=== PATIENT | female | born 1965 | race Caucasian/White ===

== ENCOUNTER 2019-09-04 08:50 | Day surgery (SDC) | payer OTHER ==
[2019-09-02 15:07] VITALS: BMI 25.7
[~2019-09-04 08:50] MED LIST: LACTATED RINGERS SOLUTION 1,000 ML IV SCH; ONDANSETRON 4 MG/2 ML VIAL IVPUSH PRN; oxyCODONE HCL 5 MG TABLET PO PRN
--- NOTE | 2019-09-04 09:12 | HP ---
Satellite [facility] - Chief Complaint Chief Complaint: right shoulder pain - Past Medical History Allergies/Adverse Reactions: Allergies Allergy/AdvReac Type Severity Reaction Status Date / Time kiwi Allergy Severe THROAT Verified 09/02/19 15:08 - Current Medications Current Medications: Home Medications Medication Instructions Recorded Acetaminophen [Tylenol] 325 mg PO PRN 09/02/19 Cranberry 400 mg PO DAILY 09/02/19 Hydrocodone/Acetaminophen 1 each PO Q6H #20 tablet MDD 4 09/04/19 [Hydrocodone-Acetamin 5-325 mg] Satellite Physical Exam - Physical Examination General Appearance: Well Nourished, Well Developed, Alert & Oriented x3 ENT: Clear Lung: Normal air movement Extremities: Other (right shoulder- + ttp, decr rom, + neer, + botello, nvi) Neurological: Intact, Alert, Oriented Satellite Impression/Plan - Impression/Plan Impression: right shoulder impingement Operative Procedure: right shoulder arthroscopy with SAD Date to be Performed: 09/04/19
[2019-09-04] MEDS ORDERED: ROPIVACAINE HCL 0.5% 30ML VIAL ONE (10:09)
[2019-09-04] MEDS ORDERED: MIDAZOLAM HCL 2 MG/2 ML SINGLE DOSE VIAL ONE ×2 (10:10)
[2019-09-04] MEDS ORDERED: fentaNYL CITRATE 250 MCG/5 ML VIAL ONE (10:58)
[2019-09-04] MEDS ORDERED: LIDOCAINE HCL/PF 2% SDV 5ML VIAL ONE (10:58)
[2019-09-04] MEDS ORDERED: PROPOFOL 20 ML ONE ×2 (10:59)
[2019-09-04] MEDS ORDERED: ceFAZolin SODIUM 1 GM VIAL IVPB ONE (11:22)
[2019-09-04] MEDS ORDERED: ceFAZolin SODIUM 1 GM VIAL ONE (11:22)
[2019-09-04] MEDS ORDERED: DEXAMETHASONE SOD PHOSPHATE 4 MG/1 ML VIAL ONE (11:34)
--- NOTE | 2019-09-04 11:41 | OP ---
Operative Note - Note: Operative Date: 09/04/19 ([facility]) Pre-Operative Diagnosis: right shoulder impingement Operation: right shoulder arthroscopy with SAD Post-Operative Diagnosis: Same as Pre-op Surgeon: Joey Montejo Box Closing Machine Operator: Ronald Fletcher Anesthesiologist/KNIFE GRINDER: Deepika Cartagena Anesthesia: General, Local Specimens Removed: shavings Estimated Blood Loss (mls): 5
[2019-09-04] MEDS ORDERED: GLYCOPYRROLATE 0.2 MG/1 ML VIAL ONE ×2 (11:56→12:04)
[2019-09-04] MEDS ORDERED: NEOSTIGMINE METHYLSULFATE 0.5 MG/ML - 10 ML MDV ONE (11:56)
[2019-09-04] MEDS ORDERED: ACETAMINOPHEN INJECTION 100 ML IVPB ONE (12:50)
--- NOTE | 2019-09-04 13:12 | OP ---
DATE OF OPERATION: 09/04/2019 PREOPERATIVE DIAGNOSIS: Right shoulder impingement syndrome. POSTOPERATIVE DIAGNOSIS: Right shoulder impingement syndrome. PROCEDURE: Right shoulder arthroscopy and subacromial decompression. SURGEON: Oscar Ag MD HEALTH SERVICES MANAGER: MARILYNN Easton ANESTHESIA: Deepika Cartagena MD, right interscalene block with LMA anesthesia. DRAINS: None. COMPLICATIONS: None. SPECIMEN: Arthroscopic shavings. BLOOD LOSS: 75 ML. BLOOD GIVEN: None. FLUID REPLACEMENT: 1000 mL Plasma-Lyte. INDICATIONS: This patient is a 54-year-old female with a preoperative diagnosis of right shoulder pain and recurrent subacromial impingement syndrome. After failing all nonoperative treatment options, she has elected to go forward with surgery. The patient understands the potential risks, complications, alternatives and benefits to surgery versus nonsurgical treatment. DESCRIPTION OF PROCEDURE: The patient was brought to the operating room. Peripheral IV placed. IV sedation given. Right interscalene block was performed. LMA anesthesia was induced. She was given 2 g of IV Ancef, and she was placed into the beach chair position with ample padding throughout. The right upper extremity was prepped and draped in a usual sterile fashion. The bony landmarks were marked out with a marking pen. A posterior portal was established, and a diagnostic glenohumeral arthroscopy was performed. The joint looked good. All the structures looked good. There was no arthritis of the glenoid or the humerus. The biceps tendon looked good. The biceps anchor and the labrum looked good. There was no undersurface rotator cuff tear. There was no synovitis. The area was copiously irrigated and washed out. All instrumentation and excess saline were removed. Next, our attention was turned to the subacromial space. A lateral portal was established under direct visualization with a spinal needle. A No. 15 scalpel blade and a green cannula were introduced into the subacromial space. Patient was noted to have a lot of inflammatory bursitis. It was removed with the ArthroCare wand after the soft tissue bursectomy and extensive soft tissue debridement. A moderate sized subacromial spur was identified. This was photographed and taken down with a 5.5-mm oval bur, finetuned in reverse and then with a straight shaver. The AC joint looked good. The distal clavicle looked good. The top surface of the rotator cuff looked good. The arm was put through a full range of motion. There was no rotator cuff tear, and there was no point of compression or impingement. The shaver was re-introduced. All excess saline and bony debris was removed. Excess saline was removed. The arthroscopy portal was closed with 3-0 nylon sutures. The area was then washed and dried. Covered with Aquacel dressing. Patient was placed into a sling. Total operative time was about 40 minutes. There were no complications during the case. The patient tolerated the procedure quite well and was brought to the ambulatory recovery room in stable condition. OSCAR AG M.D. [id number]
[2019-09-04] MEDS ORDERED: ACETAMINOPHEN 1000 MG/100 ML VIAL (NON FORMULARY) IVPB ONE (13:30)
[2019-09-04 13:42] VITALS: TEMP 98.3
[2019-09-04] MEDS ORDERED: ONDANSETRON 4 MG/2 ML VIAL IVPUSH ONE (14:50)
[2019-09-04] MEDS ORDERED: ONDANSETRON 4 MG/2 ML VIAL ONE (14:51)
[2019-09-04 15:07] VITALS: BP 102/59; PULSE 69
--- NOTE | 2019-09-09 17:02 | PATH ---
Surgical Pathology Report Patient Name: BRIAN MONTANO [facility]. Rec. #: [id number] /Age/Gender: 1965 (Age: 54) / F Account: [id number] Location: [facility] Taken: 09/04/2019 Received: 09/06/2019 Reported: 09/09/2019 Physicians: oJey Montejo M.D. Specimen(s) Received SHOULDER SHAVINGS, RIGHT Clinical History Impingement syndrome right shoulder Final Diagnosis SHOULDER SHAVINGS, RIGHT, ARTHROSCOPY WITH DECOMPRESSION: FRAGMENTS OF BENIGN SCANT CARTILAGE, BONE, DENSE FIBROCONNECTIVE TISSUE, ADIPOSE TISSUE, AND SKELETAL MUSCLE. Electronically Signed Merle Hardin M.D. Gross Description Received in formalin, labeled "right shoulder shavings," is a 4.2 x 3.5 x 0.5 cm. aggregate of smith-yellow soft tissue fragments. A hardware supplies sales representative portion is submitted in one cassette. 09/06/2019 saudi09/06/2019
== END 2019-09-04 15:52 | disposition home or self-care (01) ==
LOC: JASU-SURG 08:50
PROVIDERS: ATTEND Orthopaedic Surgery
PROC: 0RNJ4ZZ Release Right Shoulder Joint, Percutaneous Endoscopic Approach (ICD-10-PCS; principal; 2019-09-04 10:30)
DX: M75.41 Impingement syndrome of right shoulder (principal)
CPT/HCPCS: 88304-TC; 94760; J0131

== ENCOUNTER 2024-08-18 16:17 | Day surgery (SDC) | payer OTHER ==
[2024-08-18] MEDS ORDERED: KETOROLAC TROMETHAMINE 15 MG/ML VIAL ONE (17:26)
[2024-08-18 17:30] LABS: BASO % 0.7 % (0-2.0); EOS % 1.3 % (0-4.5); HEMATOCRIT 37.6 % (32.4-45.2); HEMOGLOBIN 12.5 GM/dL (10.7-15.3); LYMPH % 46.1 % (8-40); MCH 29.5 pg (25.7-33.7); MCHC 33.3 g/dl (32.0-36.0); MEAN CELL VOLUME 88.5 fl (80-96); MONO % 7.7 % (3.8-10.2); NEUT % 44.2 % (42.8-82.8); PLATELET COUNT 221 10^3/uL (134-434); RBC 4.25 M/mm3 (3.60-5.2); RDW 13.5 % (11.6-15.6); WHITE BLOOD COUNT 4.3 K/mm3 (4.0-10.0)
[2024-08-18 17:34] LABS: EPI CELLS 3 /uL (0-25.1); HYALINE CASTS 0 /uL (0-3.1); URINE APPEARANCE CLEAR; URINE BACTERIA 4 /uL (0-1359); URINE BILIRUBIN NEGATIVE (NEGATIVE); URINE COLOR YELLOW; URINE GLUCOSE (UA) NEGATIVE (NEGATIVE); URINE KETONE NEGATIVE (NEGATIVE); URINE LEUK ESTERASE NEGATIVE (NEGATIVE); URINE NITRITE NEGATIVE (NEGATIVE); URINE PROTEIN NEGATIVE (NEGATIVE); URINE RBC 225 /uL (0-23.9); URINE UROBILINOGEN 0.2 mg/dL (0.2-1.0); URINE WBC 9 /uL (0-25.8)
[2024-08-18] MEDS: KETOROLAC TROMETHAMINE 15 MG/ML VIAL IVPUSH ONE (17:36)
[2024-08-18 17:39] LABS: INR 0.87 (0.83-1.09); PROTHROMBIN TIME (PATIENT) 9.9 SEC (9.7-13.0)
[2024-08-18 17:40] LABS: POTASSIUM 4.2 mmol/L (3.5-5.1)
[2024-08-18 17:42] LABS: ACTIVATED PTT 33.5 SECONDS (25.2-36.5); BLOOD UREA NITROGEN 21.5 mg/dL (7-18); CALCIUM 9.1 mg/dL (8.5-10.1)
[2024-08-18 17:47] LABS: BILIRUBIN,TOTAL 0.2 mg/dL (0.2-1); TOT PROT 7.3 g/dl (6.4-8.2)
[2024-08-18 18:39] LABS: HIV INTERPRETATION NEGATIVE (NEGATIVE)
[2024-08-18] MEDS ORDERED: DOCUSATE SODIUM 100 MG CAPSULE (FP) PO PRN (20:11)
[2024-08-18 22:19] VITALS: BMI 25.7
[2024-08-19] MEDS: DEXTROSE 5%-0.45% SALINE 1,000 ML IV SCH ×2 (00:10→17:19)
[2024-08-19] MEDS: ACETAMINOPHEN 1000 MG/100 ML BAG IVPB PRN (01:05)
[2024-08-19] MEDS: TAMSULOSIN HCL 0.4 MG CAP PO SCH (08:49)
[2024-08-19] MEDS ORDERED: MIDAZOLAM HCL 2 MG/2 ML SINGLE DOSE VIAL ONE (14:42)
[2024-08-19] MEDS ORDERED: KETOROLAC TROMETHAMINE 30 MG/1 ML VIAL ONE (14:43)
[2024-08-19] MEDS ORDERED: DEXAMETHASONE SOD PHOSPHATE 4 MG/1 ML VIAL ONE (14:43)
[2024-08-19] MEDS ORDERED: PROPOFOL 20 ML ONE (14:43)
[2024-08-19] MEDS ORDERED: ONDANSETRON 4 MG/2 ML VIAL ONE (14:43)
[2024-08-19] MEDS ORDERED: LIDOCAINE HCL/PF 2% SDV 5ML VIAL ONE (14:43)
[2024-08-19] MEDS ORDERED: SEVOFLURANE 250 ML BTL ONE (14:45)
[2024-08-19] MEDS ORDERED: ONDANSETRON 4 MG/2 ML VIAL IVPUSH PRN (15:56)
[2024-08-19] MEDS ORDERED: oxyCODONE HCL 5 MG TABLET PO PRN (15:56)
[2024-08-19] MEDS ORDERED: LACTATED RINGERS SOLUTION 1,000 ML IV SCH (16:00)
[2024-08-19] MEDS ORDERED: ACETAMINOPHEN 1000 MG/100 ML BAG IVPB PRN (16:24)
[2024-08-19] MEDS ORDERED: DOCUSATE SODIUM 100 MG CAPSULE (FP) PO PRN (16:24)
[2024-08-19] MEDS: ATORVASTATIN CA 20 MG TABLET (FP) PO SCH (21:17)
[2024-08-19] MEDS: traZODone HCL 100 MG TABLET (FP) PO SCH (21:17)
[2024-08-19] MEDS ORDERED: ATORVASTATIN CA 20 MG TABLET (FP) PO SCH (22:00)
[2024-08-19] MEDS ORDERED: traZODone HCL 100 MG TABLET (FP) PO SCH (22:00)
[2024-08-20] MEDS: oxyCODONE HCL 5 MG TABLET PO PRN (07:14)
[2024-08-20 14:21] VITALS: BP 112/68; PULSE 61; RESP 18; TEMP 98.6
== END 2024-08-20 16:10 | disposition home or self-care (01) ==
LOC: JER 16:17 → UNDOADMOB 19:32 → JERBED 19:32 → INTOOBSV 19:32 → UNDOADMOB 20:12 → JERBED 20:12 → J6S 22:01 → JERBED 22:01 → JASUSAT 08-19 14:06 → J6S 08-19 14:17 → JASUSAT 08-20 16:16
PROVIDERS: ATTEND Family Medicine
PROC: 0T768DZ Dilation of Right Ureter with Intraluminal Device, Via Natural or Artificial Opening Endoscopic (ICD-10-PCS; 2024-08-19)
PROC: BT1DYZZ Fluoroscopy of Right Kidney, Ureter and Bladder using Other Contrast (ICD-10-PCS; 2024-08-19)
PROC: 0TC08ZZ Extirpation of Matter from Right Kidney, Via Natural or Artificial Opening Endoscopic (ICD-10-PCS; principal; 2024-08-19 12:15)
PROC: 0TC68ZZ Extirpation of Matter from Right Ureter, Via Natural or Artificial Opening Endoscopic (ICD-10-PCS; 2024-08-19 12:15)
DX: N13.0 Hydronephrosis with ureteropelvic junction obstruction (principal)
CPT/HCPCS: 0241U-QW; 36415; 76000-TC-FY; 80053; 81003; 85025; 85610; 85730; 86803; 86850; 86900; 86901; 87086; 87389; 93005; 93010; 94760; 99285-25; C1758; C2617; J0131

== ENCOUNTER 2024-09-30 07:23 | Day surgery (SDC) | payer OTHER ==
[2024-09-27 11:00] VITALS: BMI 25.4
[2024-09-30 08:12] VITALS: RESP 20
[2024-09-30] MEDS ORDERED: MIDAZOLAM HCL 2 MG/2 ML SINGLE DOSE VIAL ONE ×2 (09:51→10:08)
[2024-09-30] MEDS ORDERED: ACETAMINOPHEN 500 MG TABLET (FP) ONE (11:52)
[2024-09-30 12:34] VITALS: BP 104/61; PULSE 52; TEMP 97.3
== END 2024-09-30 12:35 | disposition home or self-care (01) ==
LOC: JASU-SURG 07:23
PROVIDERS: ATTEND Urology
PROC: 0TF3XZZ Fragmentation in Right Kidney Pelvis, External Approach (ICD-10-PCS; principal; 2024-09-30 10:00)
DX: N20.0 Calculus of kidney (principal)

== ENCOUNTER 2025-04-14 06:29 | Day surgery (SDC) | payer OTHER ==
[2025-04-08 11:32] VITALS: BMI 25.4
[2025-04-14] MEDS ORDERED: MIDAZOLAM HCL 2 MG/2 ML SINGLE DOSE VIAL ONE ×2 (09:18→09:31)
[2025-04-14 09:51] VITALS: PULSE 58
[2025-04-14 10:20] VITALS: BP 118/63; RESP 18; TEMP 97.8
== END 2025-04-14 10:40 | disposition home or self-care (01) ==
LOC: JASU-SURG 06:29
PROVIDERS: ATTEND Urology
PROC: 0TF4XZZ Fragmentation in Left Kidney Pelvis, External Approach (ICD-10-PCS; principal; 2025-04-14 09:22)
DX: N20.0 Calculus of kidney (principal)